=== PATIENT | male | born 1945 | race Hispanic/Latino ===

== ENCOUNTER → 2018-12-09 | Outpatient (CLI) | payer OTHER | END | disposition home or self-care (01) | LOC: OIH 09:56 | PROVIDERS: ATTEND Internal Medicine | DX: I10 Essential (primary) hypertension (principal); I70.0 Atherosclerosis of aorta; M47.815 Spondylosis without myelopathy or radiculopathy, thoracolumbar region | CPT/HCPCS: 71046 ==

== ENCOUNTER → 2019-06-16 | Outpatient (CLI) | payer OTHER | END | disposition home or self-care (01) | LOC: OIH 09:22 | PROVIDERS: ATTEND Internal Medicine | DX: Z01.818 Encounter for other preprocedural examination (principal); I10 Essential (primary) hypertension | CPT/HCPCS: 71046 ==

== ENCOUNTER → 2019-12-14 | Outpatient (CLI) | payer OTHER | END | disposition home or self-care (01) | LOC: OIH 10:07 | PROVIDERS: ATTEND Internal Medicine | DX: I10 Essential (primary) hypertension (principal); I70.90 Unspecified atherosclerosis | CPT/HCPCS: 71045 ==

== ENCOUNTER 2024-02-05 07:37 | Emergency (ER) | payer OTHER ==
[~2024-02-05] VITALS: Ht 172.7 cm; Wt 93.0 kg
[2024-02-05 08:18] LABS: BASOPHILS # (AUTO) 0.07 K/uL (0.00-0.20); BASOPHILS % (AUTO) 0.9 % (0.0-5.0); EOSINOPHILS # (AUTO) 0.22 K/uL (0.00-0.70); EOSINOPHILS % (AUTO) 2.9 % (0.0-8.0); HEMATOCRIT 42.6 % (42-54); IMMATURE GRANULOCYTE ABSOLUTE 0.03 K/uL (0-1); LYMPHOCYTES # (AUTO) 1.8 K/uL (1.0-4.8); MEAN CORPUSCULAR HEMOGLOBIN 30.4 pg (27.0-33.0); MEAN CORPUSCULAR HGB CONC 34.3 g/dL (32.0-36.0); MEAN CORPUSCULAR VOLUME 88.8 fL (79-99); MONOCYTES # (AUTO) 0.6 K/uL (0.1-1.0); MONOCYTES % (AUTO) 7.3 % (3.0-13.0); NEUTROPHILS # (AUTO) 5.1 K/uL (1.8-7.7); NEUTROPHILS % (AUTO) 65.5 % (40.0-77.0); PLATELET COUNT (AUTO) 189 K/uL (130-400); WHITE BLOOD COUNT (AUTO) 7.7 K/uL (4.8-10.8)
[2024-02-05] MEDS: LACTATED RINGERS 1000ML 1,000 ML IV ONE (08:20)
[2024-02-05] MEDS: ONDANSETRON 4MG INJ IVP ONE (08:20)
[2024-02-05 08:36] LABS: ALBUMIN 3.4 g/dL (3.5-5.0); BILIRUBIN,TOTAL 0.4 mg/dL (0.2-1.0); CREATININE 1.1 mg/dL (0.5-1.5); TOTAL PROTEIN, SERUM 7.1 g/dL (6.0-8.3)
[2024-02-05 10:21] VITALS: BP 113/57; PULSE 61; RESP 19; O2SAT 95
[2024-02-05] MEDS ORDERED: MECL-160 PO (10:41)
[2024-02-05] MEDS ORDERED: ONDA4TAB10 PO (10:43)
== END 2024-02-05 10:48 | disposition home or self-care (01) ==
LOC: EDH 07:37
DX: H81.10 Benign paroxysmal vertigo, unspecified ear (principal); R11.2 Nausea with vomiting, unspecified; E11.9 Type 2 diabetes mellitus without complications; I10 Essential (primary) hypertension; Z90.49 Acquired absence of other specified parts of digestive tract
CPT/HCPCS: 99283; 96374; 96361; 84484; 80053; 83690; 85025; 36415; J7120; J2405

== ENCOUNTER → 2024-05-05 | Outpatient (CLI) | payer OTHER ==
[~2024-05-05] MED LIST: MECL-302 PO; ONDA-243 PO
== END | disposition home or self-care (01) ==
LOC: RAH 12:18
PROVIDERS: ATTEND Internal Medicine
DX: M25.562 Pain in left knee (principal); Z96.652 Presence of left artificial knee joint
CPT/HCPCS: 73560

== ENCOUNTER 2024-08-31 15:29 | Emergency (ER) | payer OTHER ==
[~2024-08-31] VITALS: Ht 172.7 cm; Wt 91.6 kg
--- NOTE | 2024-08-31 15:59 | HMCIMG ---
Exam: NONCONTRAST CT BRAIN REASON: STROKE/TIA. COMPARISON: None. TECHNIQUE: Images are obtained from vertex to the skull base. The exam was performed without IV contrast. FINDINGS: There are generous ventricles and sulci. There is decreased attenuation in the deep central white matter. These findings are consistent with atrophy. There are no acute appearing focal parenchymal lesions. There is no evidence of mass, intracranial hemorrhage or acute stroke. Posterior fossa and brainstem structures appear unremarkable. There are no abnormal fluid collections. Extra cranial soft tissues appear unremarkable as well. IMPRESSION: 1. Atrophy, no acute finding. 2. These findings discussed with patient's care team at the time of dictation. CT was performed with one or more following dose reduction techniques: automated exposure control, adjustment of the mA and kv according to patient's size, or use of a iterative reconstruction technique.
--- NOTE | 2024-08-31 16:10 | NUR ---
BEDSIDE SWALLOW EVAL COMPLETED. No s/s of aspiration. Recommend regular solids (moist), thin liquids and pills whole with liquids as tolerated. Compensatory strategies: 1. sit upright during oral intake 2. moist textures 3. alternate bites/sips FARMWORKER FRUIT reviewed results and recommendations with patient, family and nurse Alessia. FARMWORKER FRUIT educated patient on risks and consequences of aspiration. Speech therapy not warranted at this time. All questions answered. Addendum: 08/31/[address] [facility] Amended: Links added.
[2024-08-31 16:14] LABS: BASOPHILS # (AUTO) 0.09 K/uL (0.00-0.20); BASOPHILS % (AUTO) 1.1 % (0.0-5.0); EOSINOPHILS # (AUTO) 0.28 K/uL (0.00-0.70); EOSINOPHILS % (AUTO) 3.4 % (0.0-8.0); IMMATURE GRANULOCYTE ABSOLUTE 0.03 K/uL (0-1); LYMPHOCYTES # (AUTO) 1.9 K/uL (1.0-4.8); LYMPHOCYTES % (AUTO) 23.1 % (21.0-51.0); MEAN CORPUSCULAR HEMOGLOBIN 30.5 pg (27.0-33.0); MEAN CORPUSCULAR HGB CONC 34.1 g/dL (32.0-36.0); MEAN CORPUSCULAR VOLUME 89.4 fL (79-99); MONOCYTES # (AUTO) 0.7 K/uL (0.1-1.0); MONOCYTES % (AUTO) 8.6 % (3.0-13.0); NEUTROPHILS # (AUTO) 5.2 K/uL (1.8-7.7); NEUTROPHILS % (AUTO) 63.4 % (40.0-77.0); PLATELET COUNT (AUTO) 237 K/uL (130-400); RED BLOOD CELL COUNT(AUTO) 4.92 MIL/uL (4.50-6.20); RED CELL DISTRIBUTION WIDTH 13.6 % (11.0-15.5); WHITE BLOOD COUNT (AUTO) 8.2 K/uL (4.8-10.8)
--- NOTE | 2024-08-31 16:15 | NUR ---
COGNITIVE-LINGUISTIC EVALUATION COMPLETED. WITHIN FUNCTIONAL LIMITS. EVALUATION: Pt AAOX4. Pt REQUESTS WANTS AND NEEDS INDEPENDENTLY WITH CLEAR SPEECH INTELLIGIBILITY. Pt COMMUNICATING AT CONVERSATIONAL LEVEL WITH NO DEFICITS IDENTIFIED AT THIS TIME. Pt COMPLETED COGNITIVE-LINGUISTIC EVALUATION WITH CORRECT AND TIMELY ANSWERS. SPEECH THERAPY NOT WARRANTED. ALL QUESTIONS ANSWERED AT THIS TIME. GARMENT WORKER REVIEWED RESULTS AND RECOMMENDATIONS WITH PATIENT AND NURSE GISELLE. Addendum: 08/31/[address] [facility] Amended: Links added.
--- NOTE | 2024-08-31 16:16 | HMCIMG ---
CHEST 1VW REASON: DIZZY COMPARISON: 08/14/2022 FINDINGS: Single view of the chest was obtained. Lungs are clear. Heart size is normal. There is no pulmonary vascular congestion. Mediastinum and bony thorax appear unremarkable. IMPRESSION: 1. Normal single view chest x-ray.
[2024-08-31 16:31] LABS: INR 0.96 (0.85-1.15); PROTHROMBIN TIME 10.4 SEC (9.6-11.6)
[2024-08-31 16:32] LABS: PARTIAL THROMBOPLASTIN TIME 27.1 SEC (26.3-35.5)
[2024-08-31 16:33] LABS: CREATININE 1.4 mg/dL (0.5-1.3); POTASSIUM 3.6 mmol/L (3.5-5.1)
[2024-08-31 16:36] LABS: B-TYPE NATRIURETIC PEPTIDE 18 pg/mL (0-100)
[2024-08-31] MEDS ORDERED: IOHEXOL-350 75 ML VIAL IV ONE (16:42)
--- NOTE | 2024-08-31 17:25 | ERN ---
General Chief Complaint: Dizzy/Light Headed Stated Complaint: DIZZINESS Time Seen by MD: 16:20 Source: patient, family History of Present Illness Timing/Duration: 1-3 hours Modifying Factors: improves with movement Allergies: Coded Allergies: No Known Drug Allergies (Unverified Allergy, Unknown, 02/05/24) Home Meds Active Scripts Ondansetron (Ondansetron Odt) 4 Mg Tab.rapdis, 8 MG PO Q8H PRN for NAUSEA/VOMITING, #15 TAB.SL Prov:SOM SAUNDERS MD 02/05/24 Meclizine HCl (Meclizine HCl) 25 Mg Tablet, 25 MG PO TID for vertigo, #30 TAB 0 Refills Prov:SOM SAUNDERS MD 02/05/24 Past Medical History Past Medical History: Diabetes-Type II, Hypertension Medical History Other: HX OF BRAIN INJURY Past Surgical History: Cholecystectomy Surgical History Other: HEAD SURGERY, BILATERAL HIP AND KNEE REPLACEMENTS Constitutional: (-) chills, (-) diaphoresis, (-) fever, (-) malaise, (-) weakness, (-) other documentation EENTM: (-) eye pain, (-) blurred vision, (-) tearing, (-) double vision, (-) ear pain, (-) ear discharge, (-) nose pain, (-) nose congestion, (-) throat pain, (-) Throat swelling, (-) mouth pain, (-) tooth pain, (-) mouth swelling, (-) other documentation Respiratory: (-) cough, (-) orthopnea, (-) short of breath, (-) stridor, (-) wheezing, (-) other documentation Cardiovascular: (-) chest pain, (-) edema, (-) palpitations, (-) syncope, (-) dyspnea on exertion, (-) other documentation Gastrointestinal/Abdominal: (-) nausea, (-) vomiting, (-) diarrhea, (-) abdominal pain, (-) abdominal distention, (-) constipation, (-) rectal bleeding, (-) dark stool/melena, (-) other documentation Genitourinary: (-) penile discharge, (-) dysuria, (-) frequency, (-) hematuria, (-) pain, (-) other documentation Musculoskeletal: (-) Neck pain, (-) back pain, (-) Flank Pain, (-) joint pain, (-) joint swelling, (-) muscle pain, (-) muscle stiffness, (-) gout, (-) other documentation Skin: (-) laceration, (-) contusion, (-) abrasion, (-) abscess, (-) rash, (-) change in color, (-) change in hair, (-) change in nails, (-) diaphoresis, (-) dryness, (-) other documentation Neuro: (-) altered mental status, (-) headache, (-) syncope, (-) paralysis, (-) numbness, (-) seizure, (-) pre-existing deficit, (-) tremors, (-) weakness, (-) dizziness, (-) slurred speech, (-) vertigo, (-) other documentation Psych: (-) depression, (-) suicidal ideation, (-) anxiety, (-) emotional problems, (-) auditory hallucinations, (-) visual hallucinations Hematologic/Lymphatic: (-) anemia, (-) blood clots, (-) easy bleeding, (-) easy bruising, (-) swollen glands, (-) other documentation Immunological/Allergic: (-) food allergy, (-) grass allergy, (-) mold allergy, (-) pollen allergy, (-) HIV/AIDS, (-) transplant, (-) othe documentation Physical Exam Eye: bilateral eye normal inspection, bilateral eye PERRL, bilateral eye EOMI Eyes Comment 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 Ear, Nose, Throat: (+) hearing grossly normal, (+) normal ENT inspection, (+) moist mucous membraine Neck: (+) normal inspection, (+) supple Respiratory: (+) chest non-tender, (+) lungs clear Heart: (+) regular, (+) no gallop Vascular: (+) no edema, (+) normal peripheral pulse, (+) no JVD Gastrointestinal: (+) soft, (+) non-tender, (+) bowel sound present Back: (+) no CVA tenderness Extremities: (+) normal range of motion, (+) no pedal edema Reflexes: Normal NIH STROKE SCALE: NIH STROKE SCALE Response (Comments) Value Level of Consciousness Alert 0 Ask patient month and their age Answers both correct 0 Command to open eyes, make fist and let go Obeys both correct 0 Best gaze (horizontal eye movement) Normal 0 Visual Field Testing No Visual Field Loss 0 Facial Paresis Normal / Symmetrical 0 Motor Function - Left Arm Normal 0 Motor Function - Right Arm Normal 0 Motor Function - Left Leg Normal 0 Motor Function - Right Leg Normal 0 Limb Ataxia No Ataxia 0 Sensory-pin prick to arms, legs, trunk and face Normal 0 Best Language (describe picture, name items and read) No Aphasia 0 Dysarthria (read several words) Normal Articulation 0 Extinction and Inattention Normal 0 Total 0 Results Laboratory and Microbiology Lab and Micro Result Laboratory Tests Test 08/31/24 16:00 08/31/24 16:05 08/31/24 17:40 Whole Blood Glucose 107 MG/DL (70-110) White Blood Count 8.2 K/uL (4.8-10.8) Red Blood Count 4.92 MIL/uL (4.50-6.20) Hemoglobin 15.0 g/dL (14.0-18.0) Hematocrit 44.0 % (42-54) Mean Corpuscular Volume 89.4 fL (79-99) Mean Corpuscular Hemoglobin 30.5 pg (27.0-33.0) Mean Corpuscular Hemoglobin Concent 34.1 g/dL (32.0-36.0) Red Cell Distribution Width 13.6 % (11.0-15.5) Platelet Count 237 K/uL (130-400) Mean Platelet Volume 11.0 fL (7.5-10.5) H Immature Granulocyte % (Auto) 0.4 % (0-1) Neutrophils (%) (Auto) 63.4 % (40.0-77.0) Lymphocytes (%) (Auto) 23.1 % (21.0-51.0) Monocytes (%) (Auto) 8.6 % (3.0-13.0) Eosinophils (%) (Auto) 3.4 % (0.0-8.0) Basophils (%) (Auto) 1.1 % (0.0-5.0) Neutrophils # (Auto) 5.2 K/uL (1.8-7.7) Lymphocytes # (Auto) 1.9 K/uL (1.0-4.8) Monocytes # (Auto) 0.7 K/uL (0.1-1.0) Eosinophils # (Auto) 0.28 K/uL (0.00-0.70) Basophils # (Auto) 0.09 K/uL (0.00-0.20) Absolute Immature Granulocyte (auto 0.03 K/uL (0-1) Nucleated Red Blood Cells 0.0 % (0.0-0.19) Prothrombin Time 10.4 SEC (9.6-11.6) Prothromb Time International Ratio 0.96 (0.85-1.15) Activated Partial Thromboplast Time 27.1 SEC (26.3-35.5) Sodium Level 135 mmol/L (136-145) L Potassium Level 3.6 mmol/L (3.5-5.1) Chloride Level 100 mmol/L (101-111) L Carbon Dioxide Level 29 mmol/L (21-32) Blood Urea Nitrogen 20 mg/dL (7-18) H Creatinine 1.4 mg/dL (0.5-1.3) H Glomerular Filtration Rate Calc 50 mL/min (>90) Random Glucose 112 mg/dL (70-105) H Total Calcium 9.2 mg/dL (8.5-10.1) Troponin I High Sensitivity 5 ng/L (4-75) B-Type Natriuretic Peptide 18 pg/mL (0-100) LDL Cholesterol 53 mg/dL (0-99) Urine Color COLORLESS (YELLOW) Urine Appearance CLEAR (CLEAR) Urine pH 5.0 (5.0-8.0) Urine Specific [place] 1.032 (1.001-1.031) Urine Protein NEGATIVE mg/dL (NEGATIVE) Urine Glucose (UA) NEGATIVE mg/dL (NEGATIVE) Urine Ketones NEGATIVE mg/dL (NEGATIVE) Urine Occult Blood SMALL (NEGATIVE) H Urine Nitrate NEGATIVE (NEGATIVE) Urine Bilirubin NEGATIVE mg/dL (NEGATIVE) Urine Urobilinogen 0.2 mg/dL (0.2-1.0) Urine Leukocyte Esterase NEGATIVE Citlaly/uL Urine RBC 2-5 /HPF (0-1) H Urine WBC 0-1 /HPF (0-1) Urine Squamous Epithelial Cells RARE /HPF (0-2) Urine Bacteria None /HPF (None Seen) MDM CT Head negative for acute bleed. Neurology consulted and they recommended an angiogram of head and neck. The angiogram is also negative. ED Course Orders Procedure Category Date Status Time Vital Signs Per CPOE 08/31/24 Transmitted Routine 15:38 Cardiac Monitoring CPOE 08/31/24 Transmitted 15:38 Bedside Glucose CPOE 08/31/24 Transmitted Fingerstick 15:38 Oxygen By Nc/Pulse Ox CPOE 08/31/24 Transmitted 15:38 Saline Lock Iv CPOE 08/31/24 Transmitted 15:38 Nothing By Mouth DIET 08/31/24 Transmitted Dinner Bedside Swallow Eval ST 08/31/24 Transmitted 15:38 Cbc With Differential LAB 08/31/24 Complete 15:38 Partial LAB 08/31/24 Complete Thromboplastin Time 15:38 Prothrombin Time With LAB 08/31/24 Complete INR 15:38 Ct Head/Brain W/O CT 08/31/24 Resulted Contrast 15:38 12 Lead Ekg Tracing- EKG 08/31/24 Logged Technical 15:38 Pulse Ox(Continuous) RT 08/31/24 Transmitted 15:38 Npo W/Aspiration CPOE 08/31/24 Transmitted Precautions 15:38 Complete Nih Stroke CPOE 08/31/24 Transmitted Scale 15:38 Troponin I High LAB 08/31/24 Complete Sensitivity 15:38 B-Type Natriuretic LAB 08/31/24 Complete Peptide 15:38 Ldl Direct LAB 08/31/24 Complete 15:38 Urinalysis Profile LAB 08/31/24 Complete 15:38 Chest 1vw RAD 08/31/24 Resulted 15:38 Nihss Every Shift And CPOE 08/31/24 Transmitted PRN 15:38 Neurological Vs Q4hrs BRITTANY 08/31/24 Transmitted 15:38 Basic Metabolic Panel LAB 08/31/24 Complete 15:38 Ct Angio Head And Neck CT 08/31/24 Resulted 16:20 Iohexol (Omnipaque) PHA 08/31/24 Complete 16:42 Current Medications Medications (Trade) Dose Ordered Sig/Michael Route PRN Reason Start Time Stop Time Status Last Admin Dose Admin Iohexol (Omnipaque) 75 ml STK-MED ONCE IV 08/31/24 16:42 08/31/24 16:42 DC Vital Signs Date Time Temp Pulse Resp B/P (MAP) Pulse Ox O2 Delivery O2 Flow Rate FiO2 08/31/24 17:13 78 16 124/63 96 Room Air* 0 21 08/31/24 16:10 N/A Room Air 08/31/24 16:06 94 16 120/68 95 Room Air* 0 21 08/31/24 15:33 98.4 73 16 130/73 98 Room Air 0 PT stable and D/C'd home. 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 DX & DISP Disposition: Discharge Departure Condition: Stable Referrals: JAYNE JONES MD (PCP) VIC SHAW MD Aug 31, 2024 17:25
[2024-08-31 17:53] LABS: APPEARANCE,URINE CLEAR (CLEAR); BILIRUBIN,URINE NEGATIVE (NEGATIVE); COLOR,URINE COLORLESS (YELLOW); GLUCOSE, URINE (UA) NEGATIVE (NEGATIVE); KETONES,URINE NEGATIVE (NEGATIVE); LEUKOCYTE ESTERASE ,URINE NEGATIVE Leu/uL (NEGATIVE); NITRATE,URINE NEGATIVE (NEGATIVE); OCCULT BLOOD,URINE SMALL (NEGATIVE); PROTEIN,URINE NEGATIVE (NEGATIVE); UROBILINOGEN,URINE 0.2 mg/dL (0.2-1.0)
[2024-08-31 17:54] LABS: ADD UA MICROSCOPIC YES
[2024-08-31 17:55] LABS: SQUAMOUS EPITHELIAL CELL,UR RARE /HPF (0-2); WBC,URINE 0-1 /HPF (0-1)
--- NOTE | 2024-08-31 18:04 | HMCIMG ---
CT ANGIOGRAM OF THE HEAD WITHOUT AND WITH CONTRAST. CT ANGIOGRAM OF THE NECK WITHOUT AND WITH CONTRAST. CT RECONSTRUCTIONS WITHOUT AND WITH CONTRAST. INDICATION: Dizziness TECHNIQUE: 3-D helical CT acquisition of the head and neck obtained before and after bolus contrast administration of 75 mL of Omnipaque 350 contrast. Volumetric data was transferred to a [a]list games workstation for post processing including 3-D volumetric rendering and multiplanar reconstructions (MPR). Reconstructions reformatted in axial, sagittal, and coronal planes. CT was performed with one or more of the following dose reduction techniques: Automated exposure control, adjustment of the mA and/or kV according to patient size, or use of iterative reconstruction technique. COMPARISON: No prior studies available for comparison. FINDINGS: ANTERIOR CIRCULATION: The cervical, petrous, cavernous, and supraclinoid segments of the internal carotid arteries appear normal bilaterally. The bilateral anterior cerebral arteries and middle cerebral arteries and their major branch vessels appear normal. The anterior communicating artery appears normal. Both posterior communicating arteries are visualized and appear normal. No evidence of an aneurysm, significant stenosis, occlusion, or vascular malformation of the anterior circulation. POSTERIOR CIRCULATION: The vertebral arteries are normal in course and caliber. The origins of both posterior inferior cerebellar arteries appear normal. Both anterior inferior cerebellar arteries appear unremarkable. Both superior cerebellar arteries and posterior cerebral arteries appear normal. The vertebrobasilar junction and basilar artery appear unremarkable. No evidence of an aneurysm, significant stenosis, occlusion, or vascular malformation of the posterior circulation. Aortic arch and great vessels appear normal. CAROTID ARTERIES: Bilateral common, external, and cervical internal carotid arteries appear normal. VERTEBRAL ARTERIES: Both vertebral arteries appear normal along the cervical spine, without evidence for dissection. Right phthisis bulbi/orbital prosthesis. IMPRESSION: No significant flow-rate limiting stenosis based on NASCET criteria. CAROTID STENOSIS REFERENCE USING NASCET CRITERIA: % ICA stenosis = (1 - narrowest ICA diameter/diameter of distal cervical ICA) x 100. Mild - <50% stenosis. Moderate - 50-69% stenosis. Severe - 70-94% stenosis. Near occlusion - 95-99% stenosis. Occluded - 100% stenosis.
[2024-08-31 20:20] VITALS: BP 122/62; PULSE 76; RESP 16; TEMP 98.1; O2SAT 99
--- NOTE | 2024-09-01 07:19 | EKG ---
[facility] Test Date: 2024-08-31 Test Time: 15:59:46 Pat Name: KARTHIKEYAN CARBAJAL Department: ED Room: Gender: M Community Life Director: [id number] : 1945 Requested By: VIC SHAW Order Number: [id number] Reading MD: Dave Mancilla Measurements Intervals Bow Rate: 74 P: 54 TX: 163 QRS: -8 QRSD: 92 T: 56 QT: 388 QTc: 432 Interpretive Statements Sinus rhythm No previous ECG available for comparison Electronically Signed On 09-06-2024 05:55:10 CDT by Dave Mancilla Please click the below link to view image of tracing.
[2024-09-23] MEDS ORDERED: FLUT1BLS3 IH (12:15)
[2024-09-23] MEDS ORDERED: HYDR25TA PO (16:39)
[2024-09-23] MEDS ORDERED: PANT40TA54 PO (16:39)
[2024-09-23] MEDS ORDERED: LISI20TA24 PO (16:39)
[2024-09-23] MEDS ORDERED: METF-444 PO (16:39)
[2024-09-23] MEDS ORDERED: TAMS-1 PO (16:39)
[2024-09-23] MEDS ORDERED: METO50TA18 PO (16:39)
[2024-09-23] MEDS ORDERED: ASPI-1197 PO (16:39)
[2024-09-23] MEDS ORDERED: ATOR10 PO (16:39)
[2024-09-23] MEDS ORDERED: OXYB5TAB20 PO (16:39)
[2024-09-30] MEDS ORDERED: GABA100C PO (17:55)
[2024-09-30] MEDS ORDERED: DOCU-116 PO (17:55)
[2024-09-30] MEDS ORDERED: CYCL-309 PO (17:55)
[2024-09-30] MEDS ORDERED: HYDR-4060 PO (17:55)
[2024-09-30] MEDS ORDERED: ASPI-891 PO (17:55)
== END 2024-08-31 20:30 | disposition home or self-care (01) ==
LOC: EDH 15:29
DX: R42 Dizziness and giddiness (principal); E11.9 Type 2 diabetes mellitus without complications; I10 Essential (primary) hypertension; Z90.49 Acquired absence of other specified parts of digestive tract; Z96.659 Presence of unspecified artificial knee joint; H81.03 Meniere's disease, bilateral
CPT/HCPCS: 99285; 83721; 84484; 80048; 83880; 85025; 85610; 85730; 82948; 81001; 36415; 71045; 70450; 70496; 70498; 92522; 92610; 93005; Q9967